=== PATIENT | female | born 1985 | race Caucasian/White ===

== ENCOUNTER 2019-12-07 18:04 | Emergency (ER) | payer SELFPAY ==
--- NOTE | 2019-12-07 18:49 | Event Note ---
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 Further treatment and workup at subsequent clinical providers discretion. Patient/guardian urged not to elope from the ED as their condition may be serious if not clinically assessed and managed. Initial orders include: labs, US, UA
[2019-12-07 19:32] LABS: Basophils % (Auto) 0.1 % (0.0-1.8); Eosinophils # (Auto) 0.1 K/mm3 (0.0-0.4); Eosinophils % (Auto) 0.7 % (0.0-4.3); Hematocrit 36.8 % (30.3-42.9); Hemoglobin 12.1 gm/dl (10.1-14.3); Lymphocytes # (Auto) 1.2 K/mm3 (1.2-5.4); Mean Corpuscular HGB Conc 33 % (30-34); Mean Corpuscular Volume 75 fl (79-97); Monocytes # (Auto) 0.5 K/mm3 (0.0-0.8); Monocytes % (Auto) 6.3 % (0.0-7.3); Platelet Count 199 K/mm3 (140-440); Red Blood Count 4.94 M/mm3 (3.65-5.03); Red Cell Distribution Width 15.7 % (13.2-15.2)
[2019-12-07 19:52] LABS: Bilirubin,Urine NEG (Negative); Blood,Urine SM (Negative); Color,Urine Colorless (Yellow); Protein,Urine <15 mg/dL mg/dL (Negative); Urobilinogen,Urine < 2.0 mg/dL (<2.0); WBC,Urine < 1.0 /HPF (0.0-6.0)
--- NOTE | 2019-12-07 20:49 | Ultrasound Report ---
Early obstetrical ultrasound INDICATION: , bleeding TECHNIQUE: Transabdominal Uterus measures 7.7 cm in length. An intrauterine gestational sac is seen with pole and yolk sa c noted. cardiac activity was documented with heart rate of 167 bpm. Estimated gestationa l age by crown-rump length is 8 weeks 1 day however, by sac size estimated gestational age is 6 weeks 4 days and qualitatively the sac is rather reduced in size relative to the pole. No other foca l abnormalities are seen in the uterus though the myometrium is mildly heterogenous. Right ovary measures 3.6 cm in length and shows flow. No lesions are noted. Left ovary measures 3.2 c m in length and shows flow. No lesions are seen. No free fluid is noted. IMPRESSION: Early intrauterine is noted as above with cardiac activity documented. Sac size appears proportionately smaller than pole however. Close follow-up is suggested. Signer Name: Heath Cardenas MD Signed: 12/07/2019 8:44 PM Workstation Name: [id number]
--- NOTE | 2019-12-07 21:54 | Emergency Department Report ---
ED Female HPI - General Chief complaint: Vaginal Bleeding Stated complaint: VAG BLEEDING Time Seen by Provider: 12/07/19 18:47 Source: patient Mode of arrival: Ambulatory Limitations: No Limitations - History of Present Illness MD Complaint: vaginal bleeding -: Gradual, days(s) (1) Severity: mild (just spotting) Severity scale (0 -10): 0 Consistency: constant Improves with: none Worsens with: none Are you Now?: No Associated Symptoms: vaginal bleeding. denies: vaginal discharge, abdominal pain, nausea/vomiting, fever/chills, headaches, loss of appetite, dysuria, hematuria, rash, seizure, shortness of breath, syncope, weakness - Related Data Previous Rx's Medication Instructions Recorded Last Taken Type Docusate Sodium [Colace CAP] 100 mg PO BID #60 capsule 11/12/15 Unknown Rx HYDROcodone/APAP 5-325 [[place] 1 each PO Q6H PRN #20 tablet 11/12/15 Unknown Rx 5-325 mg TAB] Ibuprofen [Motrin 800 MG tab] 800 mg PO Q8HR PRN #90 tablet 11/12/15 Unknown Rx Ferrous Sulfate [Feosol 325 MG tab] 325 mg PO TID #90 tablet 11/13/15 Unknown Rx Allergies Allergy/AdvReac Type Severity Reaction Status Date / Time No Known Allergies Allergy Verified 11/10/15 15:23 ED Review of Systems ROS: Stated complaint: VAG BLEEDING Other details as noted in HPI Comment: All other systems reviewed and negative ED Past Medical Hx - Past Medical History Previous Medical History?: No Hx Hypertension: No Hx Congestive Heart Failure: No Hx Diabetes: No Hx Deep Vein Thrombosis: No Hx Renal Disease: No Hx Sickle Cell Disease: No Hx Seizures: No Hx Asthma: No Hx COPD: No Hx HIV: No - Surgical History Past Surgical History?: Yes Additional Surgical History: X 1 - Social History Smoking Status: Never Smoker Substance Use Type: None - Medications Home Medications: Home Medications Medication Instructions Recorded Confirmed Last Taken Type Docusate Sodium [Colace CAP] 100 mg PO BID #60 capsule 11/12/15 Unknown Rx HYDROcodone/APAP 5-325 [[place] 1 each PO Q6H PRN #20 tablet 11/12/15 Unknown Rx 5-325 mg TAB] Ibuprofen [Motrin 800 MG tab] 800 mg PO Q8HR PRN #90 tablet 11/12/15 Unknown Rx Ferrous Sulfate [Feosol 325 MG tab] 325 mg PO TID #90 tablet 11/13/15 Unknown Rx ED Physical Exam - General Limitations: No Limitations General appearance: alert, in no apparent distress - Head Head exam: Present: atraumatic, normocephalic - Eye Eye exam: Present: normal appearance - ENT ENT exam: Present: mucous membranes moist - Neck Neck exam: Present: normal inspection - Respiratory Respiratory exam: Present: normal lung sounds bilaterally. Absent: respiratory distress - Cardiovascular Cardiovascular Exam: Present: regular rate, normal rhythm. Absent: systolic murmur, diastolic murmur, rubs, gallop - GI/Abdominal GI/Abdominal exam: Present: soft, normal bowel sounds - Extremities Exam Extremities exam: Present: normal inspection - Back Exam Back exam: Present: normal inspection - Neurological Exam Neurological exam: Present: alert, oriented X3 - Psychiatric Psychiatric exam: Present: normal affect, normal mood - Skin Skin exam: Present: warm, dry, intact, normal color. Absent: rash ED Medical Decision Making - Lab Data Result diagrams: 12/07/19 19:16 - Radiology Data Radiology results: report reviewed [facility] [address] [place] [address] Ultrasound Report Signed Patient: DIANA ODONNELL MR#: [id number] : 1985 Acct:[id number] Age/Sex: 34 / F ADM Date: 12/07/19 Loc: ED Attending Dr: Ordering Physician: DUANE SHRESTHA Date of Service: 12/07/19 Procedure(s): US OB <= 14 weeks fetus Accession Number(s): [id number] cc: DUANE SHRESTHA Early obstetrical ultrasound INDICATION: , bleeding TECHNIQUE: Transabdominal Uterus measures 7.7 cm in length. An intrauterine gestational sac is seen with pole and yolk sac noted. cardiac activity was documented with heart rate of 167 bpm. Estimated gestational age by crown-rump length is 8 weeks 1 day however, by sac size est imated gestational age is 6 weeks 4 days and qualitatively the sac is rather reduced in size relative to the pole. No other focal abnormalities are seen in the uterus though the myometrium is mildly heterogenous. Right ovary measures 3.6 cm in length and shows flow. No lesions are noted. Left ovary measures 3.2 cm in length and shows flow. No lesions are seen. No free fluid is noted. IMPRESSION: Early intrauterine is noted as above with cardiac activity documented. Sac size appears proportionately smaller than pole however. Close follow-up is suggested. Signer Name: Heath Cardenas MD Signed: 12/07/2019 8:44 PM Workstation Name: [id number] Transcribed By: GJ Dictated By: Heath Cardenas MD Electronically Authenticated By: Heath Cardenas MD Signed Date/Time: 12/07/192043 DD/ 40 TD/TT: Critical care attestation.: If time is entered above; I have spent that time in minutes in the direct care of this critically ill patient, excluding procedure time. ED Disposition Clinical Impression: Threatened in first trimester, Hemorrhage of in first trimester Disposition: DC-01 TO HOME OR SELFCARE Is pt being admited?: No Does the pt Need Aspirin: No Condition: Stable Instructions: Threatened Miscarriage (ED), (ED) Referrals: [facility] [Primary Care Provider] - 3-5 Days [facility] [Provider Group] - 3-5 Days
[2019-12-07 21:57] VITALS: BP 123/73
== END 2019-12-07 22:04 | disposition home or self-care (01) ==
LOC: ED 18:04
DX: O20.0 Threatened abortion (principal); O20.9 Hemorrhage in early pregnancy, unspecified; Z98.890 Other specified postprocedural states; Z79.899 Other long term (current) drug therapy; Z3A.01 Less than 8 weeks gestation of pregnancy
CPT/HCPCS: 36415; 76801; 81001; 84702; 85025; 86900; 86901

== ENCOUNTER 2019-12-13 13:43 | Emergency (ER) | payer SELFPAY ==
[2019-12-13 14:56] VITALS: BP 116/69
--- NOTE | 2019-12-13 14:56 | Event Note ---
ED Screening Note Date of service: 12/13/19 Time: 14:54 ED Screening Note: 9 weeks , complains of vaginal bleeding x yesterday states passed a clear sac seen here 12/07/19 for vaginal bleeding- viable at that time This initial assessment/diagnostic orders/clinical plan/treatment(s) is/are subject to change based on patients health status, clinical progression and re- assessment by fellow clinical providers in the ED. Further treatment and workup at subsequent clinical providers discretion. Patient/guardian urged not to elope from the ED as their condition may be serious if not clinically assessed and managed. Initial orders include: US labs
[2019-12-13 15:25] LABS: Basophils % (Auto) 0.4 % (0.0-1.8); Eosinophils # (Auto) 0.1 K/mm3 (0.0-0.4); Eosinophils % (Auto) 1.4 % (0.0-4.3); Hemoglobin 12.1 gm/dl (10.1-14.3); Lymphocytes # (Auto) 1.8 K/mm3 (1.2-5.4); Lymphocytes % (Auto) 23.8 % (13.4-35.0); Mean Corpuscular HGB Conc 33 % (30-34); Mean Corpuscular Volume 76 fl (79-97); Monocytes # (Auto) 0.6 K/mm3 (0.0-0.8); Monocytes % (Auto) 8.4 % (0.0-7.3); Platelet Count 198 K/mm3 (140-440); Red Blood Count 4.87 M/mm3 (3.65-5.03); Red Cell Distribution Width 15.4 % (13.2-15.2)
[2019-12-13 15:39] LABS: BUN/Creatinine Ratio 20; Blood Urea Nitrogen 10 mg/dL (7-17); Calcium 9.1 mg/dL (8.4-10.2); Hemolysis Index 18
--- NOTE | 2019-12-13 16:31 | Ultrasound Report ---
EXAMINATION: Obstetrical Ultrasound INDICATION: Vaginal bleeding in early . COMPARISON: Obstetrical ultrasound, 12/07/2019 FINDINGS: The uterus is normal in size measuring 9.4 x 4.6 x 4.8 cm. No intrauterine is visualized. T he endometrial complex is thickened, measuring a maximum thickness of 2 cm. The bilateral adnexal regions appear within normal limits. No free pelvic fluid is visualized. The patient declined transvaginal imaging. IMPRESSION: 1. No evidence of intrauterine . The previously seen intrauterine on the prior st udy is not visualized. Please correlate with patient's clinical circumstances and laboratory values. Signer Name: Sahra Elias MD Signed: 12/13/2019 4:27 PM Workstation Name: [id number]
[2019-12-13 16:43] LABS: Bacteria,Urine 1+ /HPF (Negative); Bilirubin,Urine NEG (Negative); Blood,Urine MOD (Negative); Color,Urine Straw (Yellow); Protein,Urine <15 mg/dL mg/dL (Negative); Urobilinogen,Urine < 2.0 mg/dL (<2.0); WBC,Urine < 1.0 /HPF (0.0-6.0)
--- NOTE | 2019-12-13 18:24 | Emergency Department Report ---
ED Female HPI - General Chief complaint: Vaginal Bleeding Stated complaint: VAG BLEEDING Time Seen by Provider: 12/13/19 14:50 Source: patient Mode of arrival: Ambulatory Limitations: No Limitations, Language Barrier - History of Present Illness Initial comments: This is a 34-year-old female -0-0-2 who returns to the ED complaining of continued vaginal discharge. Patient was evaluated here on 12/07/2019 with threatened . Patient states the bleeding continued for the past week and is currently still bleeding. Patient admits to minimal cramping otherwise no other symptoms. She denies dysuria, nausea vomiting, fatigue, shortness of breath, dizziness - Related Data Previous Rx's Medication Instructions Recorded Last Taken Type Docusate Sodium [Colace CAP] 100 mg PO BID #60 capsule 11/12/15 Unknown Rx HYDROcodone/APAP 5-325 [[place] 1 each PO Q6H PRN #20 tablet 11/12/15 Unknown Rx 5-325 mg TAB] Ferrous Sulfate [Feosol 325 MG tab] 325 mg PO TID #90 tablet 11/13/15 Unknown Rx Ibuprofen [Motrin 800 MG tab] 800 mg PO Q8HR PRN #30 tablet 12/13/19 Unknown Rx Allergies Allergy/AdvReac Type Severity Reaction Status Date / Time No Known Allergies Allergy Verified 11/10/15 15:23 ED Review of Systems ROS: Stated complaint: VAG BLEEDING Other details as noted in HPI Comment: All other systems reviewed and negative ED Past Medical Hx - Past Medical History Previous Medical History?: No Hx Hypertension: No Hx Congestive Heart Failure: No Hx Diabetes: No Hx Deep Vein Thrombosis: No Hx Renal Disease: No Hx Sickle Cell Disease: No Hx Seizures: No Hx Asthma: No Hx COPD: No Hx HIV: No - Surgical History Past Surgical History?: Yes Additional Surgical History: X 1 - Social History Smoking Status: Never Smoker Substance Use Type: None - Medications Home Medications: Home Medications Medication Instructions Recorded Confirmed Last Taken Type Docusate Sodium [Colace CAP] 100 mg PO BID #60 capsule 11/12/15 Unknown Rx HYDROcodone/APAP 5-325 [[place] 1 each PO Q6H PRN #20 tablet 11/12/15 Unknown Rx 5-325 mg TAB] Ferrous Sulfate [Feosol 325 MG tab] 325 mg PO TID #90 tablet 11/13/15 Unknown Rx Ibuprofen [Motrin 800 MG tab] 800 mg PO Q8HR PRN #30 tablet 12/13/19 Unknown Rx ED Physical Exam - General Limitations: No Limitations, Language Barrier General appearance: alert, in no apparent distress - Head Head exam: Present: atraumatic, normocephalic - Eye Eye exam: Present: normal appearance - ENT ENT exam: Present: mucous membranes moist - Neck Neck exam: Present: normal inspection - Respiratory Respiratory exam: Present: normal lung sounds bilaterally. Absent: respiratory distress - Cardiovascular Cardiovascular Exam: Present: regular rate, normal rhythm. Absent: systolic murmur, diastolic murmur, rubs, gallop - GI/Abdominal GI/Abdominal exam: Present: soft, normal bowel sounds. Absent: distended, tenderness, guarding, rebound - Extremities Exam Extremities exam: Present: normal inspection - Back Exam Back exam: Present: normal inspection - Neurological Exam Neurological exam: Present: alert, oriented X3 - Psychiatric Psychiatric exam: Present: normal affect, normal mood - Skin Skin exam: Present: warm, dry, intact, normal color. Absent: rash ED Course Vital Signs 12/13/19 14:44 Temperature 98.0 F Pulse Rate 109 H Respiratory 18 Rate Blood Pressure 116/69 Blood Pressure 116/69 [Right] O2 Sat by Pulse 100 Oximetry ED Medical Decision Making - Lab Data Result diagrams: 12/13/19 15:05 12/13/19 15:05 Laboratory Last Values WBC 7.5 K/mm3 (4.5-11.0) 12/13/19 15:05 RBC 4.87 M/mm3 (3.65-5.03) 12/13/19 15:05 Hgb 12.1 gm/dl (10.1-14.3) 12/13/19 15:05 Hct 37.0 % (30.3-42.9) 12/13/19 15:05 MCV 76 fl (79-97) L 12/13/19 15:05 MCH 25 pg (28-32) L 12/13/19 15:05 MCHC 33 % (30-34) 12/13/19 15:05 RDW 15.4 % (13.2-15.2) H 12/13/19 15:05 Plt Count 198 K/mm3 (140-440) 12/13/19 15:05 Lymph % (Auto) 23.8 % (13.4-35.0) 12/13/19 15:05 Rogers % (Auto) 8.4 % (0.0-7.3) H 12/13/19 15:05 Eos % (Auto) 1.4 % (0.0-4.3) 12/13/19 15:05 Baso % (Auto) 0.4 % (0.0-1.8) 12/13/19 15:05 Lymph # 1.8 K/mm3 (1.2-5.4) 12/13/19 15:05 Rogers # 0.6 K/mm3 (0.0-0.8) 12/13/19 15:05 Eos # 0.1 K/mm3 (0.0-0.4) 12/13/19 15:05 Baso # 0.0 K/mm3 (0.0-0.1) 12/13/19 15:05 Seg Neutrophils % 66.0 % (40.0-70.0) 12/13/19 15:05 Seg Neutrophils # 5.0 K/mm3 (1.8-7.7) 12/13/19 15:05 Sodium 137 mmol/L (137-145) 12/13/19 15:05 Potassium 4.5 mmol/L (3.6-5.0) 12/13/19 15:05 Chloride 101.3 mmol/L (98-107) 12/13/19 15:05 Carbon Dioxide 24 mmol/L (22-30) 12/13/19 15:05 Anion Gap 16 mmol/L 12/13/19 15:05 BUN 10 mg/dL (7-17) 12/13/19 15:05 Creatinine 0.5 mg/dL (0.7-1.2) L 12/13/19 15:05 Estimated GFR > 60 ml/min 12/13/19 15:05 BUN/Creatinine Ratio 20 % 12/13/19 15:05 Glucose 94 mg/dL (65-100) 12/13/19 15:05 Calcium 9.1 mg/dL (8.4-10.2) 12/13/19 15:05 HCG, Quant 6948 mIU/mL (0-4) H 12/13/19 15:05 Urine Color Straw (Yellow) 12/13/19 15:15 Urine Turbidity Clear (Clear) 12/13/19 15:15 Urine pH 6.0 (5.0-7.0) 12/13/19 15:15 Ur Specific [place] 1.004 (1.003-1.030) 12/13/19 15:15 Urine Protein <15 mg/dl mg/dL (Negative) 12/13/19 15:15 Urine Glucose (UA) Neg mg/dL (Negative) 12/13/19 15:15 Urine Ketones Neg mg/dL (Negative) 12/13/19 15:15 Urine Blood Mod (Negative) 12/13/19 15:15 Urine Nitrite Neg (Negative) 12/13/19 15:15 Urine Bilirubin Neg (Negative) 12/13/19 15:15 Urine Urobilinogen < 2.0 mg/dL (<2.0) 12/13/19 15:15 Ur Leukocyte Esterase Neg (Negative) 12/13/19 15:15 Urine WBC (Auto) < 1.0 /HPF (0.0-6.0) 12/13/19 15:15 Urine RBC (Auto) 2.0 /HPF (0.0-6.0) 12/13/19 15:15 Urine Bacteria (Auto) 1+ /HPF (Negative) 12/13/19 15:15 - Radiology Data Radiology results: report reviewed, image reviewed EXAMINATION: Obstetrical Ultrasound INDICATION: Vaginal bleeding in early . COMPARISON: Obstetrical ultrasound, 12/07/2019 FINDINGS: The uterus is normal in size measuring 9.4 x 4.6 x 4.8 cm. No intrauterine is visualized. The endometrial complex is thickened, measuring a maximum thickness of 2 cm. The bilateral adnexal regions appear within normal limits. No free pelvic fluid is visualized. The patient declined transvaginal imaging. IMPRESSION: 1. No evidence of intrauterine . The previously seen intrauterine on the prior study is not visualized. Please correlate with patient's clinical circumstances and laboratory values. Signer Name: Sahra Elias MD Signed: 12/13/2019 4:27 PM Workstation Name: [id number] Transcribed By: KULWANT Dictated By: Sahra lEias MD Electronically Authenticated By: Sahra Elias MD Signed Date/Time: 12/13/19 7154 - Medical Decision Making 34-year-old female presents to ED with complete spontaneous miscarriage ED course: Pt received ultra sound, CBC, urinalysis, test and quantitative ED Quant reduced from 13,000 to about 6000. H&H stable Ultrasound shows no intrauterine compared to last ultrasound from 12/07/2019. See reported above Vital signs normalized patient is in no acute distress. I discussed with the patient if follow-up with her [facility]. Discussed Motrin 800 mg every 8 hours as needed for pain I discussed all labs and ultrasound findings with the patient and her . I discussed with the patient that he if bleeding worsens or new symptoms develop to return to ED immediately Critical care attestation.: If time is entered above; I have spent that time in minutes in the direct care of this critically ill patient, excluding procedure time. ED Disposition Clinical Impression: Spontaneous , Complete miscarriage, Vaginal bleeding Disposition: TO HOME OR SELFCARE Is pt being admited?: No Does the pt Need Aspirin: No Condition: Stable Instructions: Spontaneous Miscarriage (ED) Additional Instructions: Make sure to follow up with the [facility] in 2 to 3 days as discussed. Take all your medications as you've been prescribed. If you have any worsening symptoms or develop new symptoms please return to ED immediately. Prescriptions: Ibuprofen [Motrin 800 MG tab] 800 mg PO Q8HR PRN #30 tablet PRN Reason: Pain Referrals: [facility] [Outside] - 3-5 Days [facility] [Outside] - 3-5 Days [facility] [Provider Group] - 3-5 Days [facility] [Provider Group] - 3-5 Days Forms: Accompanied Note, Work/School Release Form(ED) Time of Disposition: 18:30
== END 2019-12-13 20:00 | disposition home or self-care (01) ==
LOC: ED 13:43
DX: O03.9 Complete or unspecified spontaneous abortion without complication (principal); Z98.890 Other specified postprocedural states; Z79.899 Other long term (current) drug therapy
CPT/HCPCS: 36415; 76801; 80048; 81001; 84702; 85025; 99284